=== PATIENT | male | born 2000 | race Caucasian/White ===

== ENCOUNTER 2019-07-01 19:58 | Emergency (ER) | payer SELFPAY ==
[~2019-07-01] VITALS: Ht 172.7 cm; Wt 57.2 kg
[2019-07-01] MEDS ORDERED: diphenhydrAMINE HCL 50 MG CAPSULE ONE (20:15)
[2019-07-01] MEDS ORDERED: EPINEPHRINE (1:1000) 1 MG/ML AMPUL ONE (20:23)
[2019-07-01] MEDS ORDERED: FAMOTIDINE (20 MG) 20 MG TABLET ONE (20:24)
[2019-07-01] MEDS ORDERED: predniSONE 20 MG TABLET ONE (20:24)
[2019-07-01] MEDS ORDERED: EPINEPHRINE (1:1000) MDV 30 MG/30ML VIAL SUBCUT ONE (20:30)
[2019-07-01] MEDS ORDERED: predniSONE 10 MG TABLET PO ONE (20:30)
[2019-07-01] MEDS ORDERED: FAMOTIDINE (20 MG) 20 MG TABLET PO ONE (20:30)
[2019-07-01] MEDS ORDERED: diphenhydrAMINE HCL 50 MG CAPSULE PO ONE (20:30)
--- NOTE | 2019-07-01 20:30 | NUR ---
ANITA. TO ER BED 14, AAOX4. BREATHING EVEN AND UNLABORED. SPEAKING IN FULL SENTENCES. C/O FEELING OF THROAT CLOSING IN AFTER EAETING CASHEWS. PT REPORTS THAT HE HAS ALLERGY TO NUTS, SPECIFICALLY PISTACIO. PT HAS THE SAME FEELING BEFORE WHEN HE HAD A REATION. AIRWAY NOTED PATENT, FACIAL REDNESS. PAIN UPON INSPIRATION OVER STERNUM. PT PRESENTED WITH IV ON R AC. AT BEDSIDE FOR EVAL.ORDERS RECEIVED, NOTED AND CARRIED OUT
--- NOTE | 2019-07-01 20:56 | NUR ---
FACIAL REDNESS SLIGHTLY GETTING LESS AND PT VERBALIZED THATB HIS BREATHING IS BETTER
[2019-07-01 21:39] VITALS: BP 122/76
== END 2019-07-01 21:40 | disposition home or self-care (01) ==
LOC: ER 20:05
DX: T78.1XXA Other adverse food reactions, not elsewhere classified, initial encounter (principal); X58.XXXA Exposure to other specified factors, initial encounter
CPT/HCPCS: 96372; 99284; J0171 ×2; J7512; Q0163